=== PATIENT | male | born 1980 ===

== ENCOUNTER 2023-04-14 05:42 | Day surgery (SDC) | payer OTHER ==
[~2023-04-14] VITALS: Ht 180.3 cm; Wt 84.4 kg
[~2023-04-14 05:42] MED LIST: SYNTHROID125 MCG PO
[2023-04-14] MEDS ORDERED: POVIDONE-IODINE 118 ML BOTT TOP ONE ×2 (08:51→09:45)
[2023-04-14] MEDS ORDERED: BUPIVACAINE HCL/PF 0.5% 1ML ONE (08:51)
[2023-04-14] MEDS ORDERED: HEMOSTATIC MATRIX 1 KIT KIT TOP ONE ×2 (08:51→09:45)
[2023-04-14] MEDS ORDERED: METRONIDAZOLE/SODIUM CHLORIDE 500 MG/100 ML PIGGYBACK IV ONE ×2 (08:54→09:45)
[2023-04-14] MEDS ORDERED: CEFTRIAXONE SODIUM 2,000 MG VIAL ONE (08:54)
[2023-04-14] MEDS ORDERED: CEFTRIAXONE SODIUM 2,000 MG VIAL IV ONE (09:30)
[2023-04-14] MEDS ORDERED: BUPIVACAINE HCL/PF 0.5% 1ML IJ ONE (09:45)
== END 2023-04-14 15:15 | disposition home or self-care (01) ==
LOC: CIR.AMB 05:42
PROVIDERS: ATTEND Colon & Rectal Surgery
DX: K64.2 Third degree hemorrhoids (principal); K64.8 Other hemorrhoids; Z20.822 Contact with and (suspected) exposure to COVID-19; I10 Essential (primary) hypertension